=== PATIENT | female | born 1955 | race Caucasian/White ===

== ENCOUNTER 2016-12-03 11:04 | Day surgery (SDC) | payer BC ==
[2016-11-30 13:25] VITALS: BMI 27.3
[~2016-12-03 11:04] MED LIST: LACTATED RINGERS 1,000 ML IV SCH
[2016-12-03 11:23] VITALS: RESP 16; TEMP 98.3
[2016-12-03] MEDS ORDERED: LIDOCAINE 1% 20 ML VIAL (10MG/ML) FOR IV START INTRADERMA ONE (11:42)
[2016-12-03 11:45] LABS: Glucose,Whole Blood 89 mg/dL (75-99)
[2016-12-03] MEDS ORDERED: PROPOFOL 10 MG/ML 20 ML VIAL IV ONE (12:03)
--- NOTE | 2016-12-03 12:19 | P.PCN ---
Date of Procedure: 12/03/16 Procedure(s) Performed: BRIEF HISTORY: Patient is a 61-year-old pleasant white female, scheduled for an elective colonoscopy as a part of evaluation of long-standing history of ulcerative colitis was diagnosed in 1999. Her last colonoscopy was done 2 years ago. She remains in clinical remission. PROCEDURE PERFORMED: Colonoscopy with biopsy. PREOPERATIVE DIAGNOSIS: Long-standing history of ulcerative colitis. IV sedation per Anesthesia. PROCEDURE: After informed consent was obtained, the patient, was brought into the endoscopy unit. IV conscious sedation was administered by Anesthesia under continuous monitoring. Initially the Olympus CF-160 flexible video colonoscope was then inserted in the rectum, gradually advanced into the cecum without any difficulty. Careful examination was performed as the scope was gradually being withdrawn. Ileocecal valve and the appendiceal orifice were visualized and appeared normal. Prep was excellent. Mucosa of the cecum, ascending colon, transverse colon, descending colon, sigmoid colon, and rectum appeared normal. Random biopsies were done at every 10 cm intervals to rule out dysplasia. Scattered sigmoidal diverticulosis seen. Retroflexion was performed in the rectum and no lesions were seen. The patient tolerated the procedure well. IMPRESSION: Normal-appearing colon from rectum to cecum with no evidence of active colitis or colorectal neoplasia. Scattered sigmoid diverticulosis. RECOMMENDATIONS: Findings of this examination were discussed with the patient as well as a family. She was advised to follow with the biopsy results. If the biopsy does not show any evidence of dysplasia he can have a repeat colonoscopy in 2 years.
[2016-12-03 13:00] VITALS: BP 113/72; PULSE 68
== END 2016-12-03 13:04 | disposition home or self-care (01) ==
LOC: ORWHC2ENDO 11:04
PROVIDERS: ATTEND Internal Medicine Gastroenterology
DX: K52.89 Other specified noninfective gastroenteritis and colitis (principal); K57.30 Diverticulosis of large intestine without perforation or abscess without bleeding; K58.9 Irritable bowel syndrome, unspecified; K21.9 Gastro-esophageal reflux disease without esophagitis; Z79.52 Long term (current) use of systemic steroids; Z79.899 Other long term (current) drug therapy; Z88.5 Allergy status to narcotic agent; Z91.041 Radiographic dye allergy status
CPT/HCPCS: 88305; 45380; J2704

== ENCOUNTER → 2016-12-13 | Outpatient (CLI) | payer BC ==
--- NOTE | 2016-12-15 07:05 | MM ---
Reason for exam: screening (asymptomatic). Last mammogram was performed 1 year and 3 months ago. History: Patient is postmenopausal and is nulliparous. Family history of breast cancer in paternal aunt at age 65 and breast cancer in maternal aunt at age 67. Benign left mammotome panel of the left breast, June 09, 2011. Took hormonal contraceptives for 4 years beginning at age 16. Physical Findings: A clinical breast exam by your physician is recommended on an annual basis and results should be correlated with mammographic findings. MG Screening Mammo w CAD Bilateral CC and MLO view(s) were taken. Prior study comparison: September 10, 2015, bilateral MG screening mammo w CAD. July 23, 2014, bilateral MG screening mammo w CAD. February 09, 2013, bilateral digital screening mammo w/CAD. The breast tissue is heterogeneously dense. This may lower the sensitivity of mammography. Calcifications in the right breast are unchanged from 2015. Asymmetric density superior right breast appears more defined but may represent summation shadow. Asymmetric density left breast at a middle depth lateral to the retroareolar plane also appears more defined. ASSESSMENT: Incomplete: need additional imaging evaluation, BI-RAD 0 RECOMMENDATION: Special view mammogram of both breasts. If lesion persists on supplemental views, image directed ultrasound is recommended. [facility] will attempt to contact patient to return for supplemental views and ultrasound if indicated. LAUREN
== END | disposition home or self-care (01) ==
LOC: RADMAMWWP 14:34
PROVIDERS: ATTEND Obstetrics & Gynecology
DX: Z12.31 Encounter for screening mammogram for malignant neoplasm of breast (principal); Z80.3 Family history of malignant neoplasm of breast

== ENCOUNTER → 2016-12-16 | Outpatient (CLI) | payer BC ==
--- NOTE | 2016-12-16 14:44 | MM ---
Reason for exam: additional evaluation requested from abnormal screening. Last mammogram was performed less than 1 month ago. History: Patient is postmenopausal and is nulliparous. Family history of breast cancer in paternal aunt at age 65 and breast cancer in maternal aunt at age 67. Benign left mammotome panel of the left breast, June 09, 2011. Took hormonal contraceptives for 4 years beginning at age 16. Physical Findings: Nurse did not find any significant physical abnormalities on exam. MG 3D Work Up W/Cad ELLIS Bilateral CC and MLO view(s) were taken. Prior study comparison: December 13, 2016, bilateral MG screening mammo w CAD. September 10, 2015, bilateral MG screening mammo w CAD. The breast tissue is heterogeneously dense. This may lower the sensitivity of mammography. Previous mammotome biopsy in the left breast. Nodularity persists in the left breast. This finding is changed when compared with previous exams. These results were verbally communicated with the patient and result sheet given to the patient on 12/16/16. ASSESSMENT: Incomplete: need additional imaging evaluation, BI-RAD 0 RECOMMENDATION: Ultrasound of the left breast.
--- NOTE | 2016-12-16 14:45 | USB ---
Reason for exam: additional evaluation requested from abnormal screening. History: Patient is postmenopausal and is nulliparous. Family history of breast cancer in paternal aunt at age 65 and breast cancer in maternal aunt at age 67. Benign left mammotome panel of the left breast, June 09, 2011. Took hormonal contraceptives for 4 years beginning at age 16. US Breast Workup LT Left breast ultrasound including all four quadrants, the retroareolar region and axilla demonstrates no cystic or solid lesion seen. These results were verbally communicated with the patient and result sheet given to the patient on 12/16/16. ASSESSMENT: Probably benign, BI-RAD 3 RECOMMENDATION: Follow-up diagnostic mammogram of the left breast in 6 months.
== END ==
LOC: RADMAMWWP 12:53
PROVIDERS: ATTEND Obstetrics & Gynecology
DX: R92.8 Other abnormal and inconclusive findings on diagnostic imaging of breast (principal)
CPT/HCPCS: 76641; G0204; G0279

== ENCOUNTER → 2017-06-16 | Outpatient (CLI) | payer BC ==
--- NOTE | 2017-06-16 10:54 | MM ---
Reason for exam: follow-up at short interval from prior study. Last mammogram was performed 6 months ago. History: Patient is postmenopausal and is nulliparous. Family history of breast cancer in paternal aunt at age 65 and breast cancer in maternal aunt at age 67. Benign left mammotome panel of the left breast, June 09, 2011. Took hormonal contraceptives for 4 years beginning at age 16. Physical Findings: Nurse did not find any significant physical abnormalities on exam. MG 3D Diag Mammo W/Cad LT CC and MLO view(s) were taken of the left breast. Prior study comparison: December 16, 2016, bilateral MG 3d work up w/cad ELLIS. December 13, 2016, bilateral MG screening mammo w CAD. The breast tissue is heterogeneously dense. This may lower the sensitivity of mammography. There is chronic nodularity in the left breast. No significant new findings when compared with previous films. These results were verbally communicated with the patient and result sheet given to the patient on 06/16/17. ASSESSMENT: Benign, BI-RAD 2 RECOMMENDATION: Return to routine screening mammogram schedule for both breasts. Back on schedule.
== END | disposition home or self-care (01) ==
LOC: RADMAMWWP 10:11
PROVIDERS: ATTEND Obstetrics & Gynecology
DX: R92.8 Other abnormal and inconclusive findings on diagnostic imaging of breast (principal)
CPT/HCPCS: G0206; G0279

== ENCOUNTER → 2017-08-15 | Outpatient (CLI) | payer BC ==
--- NOTE | 2017-08-15 13:53 | US ---
EXAMINATION TYPE: US carotid duplex BILAT DATE OF EXAM: 08/15/2017 COMPARISON: NONE CLINICAL HISTORY: H93.19 pulsatile Tinnitus. Patient states having left temporal discomfort, no HTN o r high cholesterol EXAM MEASUREMENTS: RIGHT: Peak Systolic Velocity (PSV) cm/sec ----- Right CCA: 98.2 ----- Right ICA: 113.4 ----- Right ECA: 100.4 ICA/CCA ratio: 1.2 RIGHT: End Diastole cm/sec ----- Right CCA: 22.7 ----- Right ICA: 26.7 ----- Right ECA: 6.0 LEFT: Peak Systolic Velocity (PSV) cm/sec ----- Left CCA: 115.7 ----- Left ICA: 90.5 ----- Left ECA: 89.2 ICA/CCA ratio: 0.8 LEFT: End Diastole cm/sec ----- Left CCA: 25.2 ----- Left ICA: 23.2 ----- Left ECA: 0.0 VERTEBRALS (direction of flow): Right Vertebral: Antegrade Left Vertebral: Antegrade Rhythm: Normal No wall thickening, plaque or significant stenosis seen. IMPRESSION: No evidence of hemodynamically significant stenosis within either carotid arterial syste m.
== END ==
LOC: RADUSWWP 12:12
PROVIDERS: ATTEND Family Medicine
DX: H93.A2 Pulsatile tinnitus, left ear (principal)
CPT/HCPCS: 93880

== ENCOUNTER → 2017-12-29 | Outpatient (CLI) | payer BC ==
--- NOTE | 2017-12-30 11:00 | MM ---
Reason for exam: screening (asymptomatic). Last mammogram was performed 6 months ago. History: Patient is postmenopausal and is nulliparous. Family history of breast cancer in paternal aunt at age 65 and breast cancer in maternal aunt at age 67. Benign left mammotome panel of the left breast, June 09, 2011. Took hormonal contraceptives for 4 years beginning at age 16. Physical Findings: A clinical breast exam by your physician is recommended on an annual basis and results should be correlated with mammographic findings. MG 3D Screening Mammo W/Cad Bilateral CC and MLO view(s) were taken. Prior study comparison: June 16, 2017, left breast MG 3d diag mammo w/cad LT. December 16, 2016, bilateral MG 3d work up w/cad ELLIS. The breast tissue is heterogeneously dense. This may lower the sensitivity of mammography. Finding: There are typically benign calcifications in both breasts. No suspicious abnormality. No significant changes in finding since June 16, 2017 and December 16, 2016. ASSESSMENT: Benign, BI-RAD 2 RECOMMENDATION: Routine screening mammogram of both breasts in 1 year.
== END | disposition home or self-care (01) ==
LOC: RADMAMWWP 15:32
PROVIDERS: ATTEND Obstetrics & Gynecology
DX: Z12.31 Encounter for screening mammogram for malignant neoplasm of breast (principal)
CPT/HCPCS: 77063; 77067

== ENCOUNTER → 2018-02-14 | Outpatient (CLI) | payer BC ==
--- NOTE | 2018-02-14 09:26 | US ---
EXAMINATION TYPE: US abdomen limited DATE OF EXAM: 02/14/2018 COMPARISON: NONE CLINICAL HISTORY: R10.9 Abdominal Pain. Anemia, abdominal pain, splenomegaly EXAM MEASUREMENTS: Liver Length: 12.4 cm Gallbladder Wall: 0.3 cm CBD: 0.2 cm Right Kidney: 10.4 x 4.1 x 4.2 cm Pancreas: visualized portions appear wnl Liver: appears wnl as visualized Gallbladder: no evidence of stones Evidence for sonographic Peterson's sign: no CBD: wnl Right Kidney: thin renal cortex Spleen measuring upper limits of normal = 13.5cm IMPRESSION: No significant abnormality seen.
== END | disposition home or self-care (01) ==
LOC: RADUSWWP 08:21
PROVIDERS: ATTEND Internal Medicine Hematology & Oncology
DX: D64.89 Other specified anemias (principal); R10.9 Unspecified abdominal pain
CPT/HCPCS: 76705

== ENCOUNTER → 2018-03-14 | Outpatient (CLI) | payer BC, MEDICARE ==
--- NOTE | 2018-03-14 13:19 | CT ---
EXAMINATION TYPE: CT abdomen pelvis wo con DATE OF EXAM: 03/14/2018 COMPARISON: Renal ultrasound 01/30/2016 which commented on a 2.2 cm septated left renal cyst. HISTORY: 63-year-old female Lt renal cyst CT DLP: 440.8 mGycm. Automated exposure control for dose reduction was used. TECHNIQUE: Contiguous axial scanning of the abdomen and pelvis without IV contrast. Coronal and sagit yayo reconstructions performed. FINDINGS: Heart normal size without pericardial effusion. Lung bases clear without pleural effusion. Noncontrast appearance of the liver, gallbladder, adrenal glands, right kidney, spleen with hilar spl enule, and pancreas shows no gross abnormality. There is a partially exophytic cyst from the posterior left kidney that measures 2.9 cm versus 2.2 cm on 01/30/2016. No dilated small bowel, free fluid, or free air. No mesenteric or retroperitoneal lymphadenopathy. Mild to moderate stool cecum and ascending colon. No pericolonic inflammatory change. Bladder is urine distended. Uterus and small ovaries are visualized. No abnormal fluid collection in the pelvis or pelvic lymphadenopathy. Bones: Mild degenerative changes at the hips. Additional degenerative changes lower lumbar spine. No osseous destructive process. Hemangioma within the T11 vertebral body. IMPRESSION: Cystic lesion posterior left kidney measures 2.9 cm versus 2.2 cm on 01/30/2016. Relatively indolent be havior suggests a benign etiology. 6 - 12 month follow-up ultrasound can be performed given the compl exity seen on the ultrasound exam. Internal components are not assessed on this noncontrast study.
== END | disposition home or self-care (01) ==
LOC: RADCTMAIN 10:58
PROVIDERS: ATTEND Internal Medicine Hematology & Oncology
DX: N28.1 Cyst of kidney, acquired (principal); R10.9 Unspecified abdominal pain; N83.209 Unspecified ovarian cyst, unspecified side
CPT/HCPCS: 74176

== ENCOUNTER → 2018-04-21 | Outpatient (CLI) | payer MEDICARE, BC ==
[2018-04-21 11:46] LABS: Potassium 3.8 mmol/L (3.5-5.1)
[2018-04-21 11:47] LABS: Albumin 3.8 g/dL (3.5-5.0); Total Protein 6.5 g/dL (6.3-8.2)
[2018-04-21 12:02] LABS: T4, Free (Free Thyroxine) 0.96 ng/dL (0.78-2.19)
[2018-04-21 18:21] LABS: Thyroid Peroxidase Antibodies 37.4 U/mL (0.0-60.0)
== END | disposition home or self-care (01) ==
LOC: LABWHC1 11:13
PROVIDERS: ATTEND Family Medicine
DX: D64.9 Anemia, unspecified (principal); R73.01 Impaired fasting glucose
CPT/HCPCS: 36415; 80053; 83036; 84439; 84443; 86376; 86800

== ENCOUNTER 2018-12-06 07:04 | Day surgery (SDC) | payer MEDICARE ==
[2018-12-04 13:20] VITALS: BMI 29.9
[~2018-12-06 07:04] MED LIST changes: -LACTATED RINGERS 1,000 ML IV SCH; +LIDOCAINE 1% 20 ML VIAL (10MG/ML) FOR IV START INTRADERMA PRN
[2018-12-06 07:26] VITALS: RESP 18; TEMP 98.1
[2018-12-06] MEDS ORDERED: LACTATED RINGERS 1,000 ML IV ONE (07:27)
[2018-12-06] MEDS: LACTATED RINGERS 1,000 ML IV SCH ×2 (07:30→08:20)
[2018-12-06 07:34] LABS: Glucose,Whole Blood 92 mg/dL (75-99)
[2018-12-06] MEDS ORDERED: PROPOFOL 10 MG/ML 20 ML VIAL IV ONE (07:55)
--- NOTE | 2018-12-06 08:13 | P.PCN ---
Date of Procedure: 12/06/18 Procedure(s) Performed: BRIEF HISTORY: Patient is a 63-year-old pleasant white female, scheduled for an elective colonoscopy as a part of surveillance of long-standing history of ulcerative colitis. She remains in clinical remission. Presently maintained on oral mesalamine and remains in clinical remission. PROCEDURE PERFORMED: Colonoscopy with random biopsies and snare polypectomy. PREOPERATIVE DIAGNOSIS: Long standing history of ulcerative colitis. IV sedation per Anesthesia. PROCEDURE: After informed consent was obtained, the patient, was brought into the endoscopy unit. IV sedation was administered by Anesthesia under continuous monitoring. Digital rectal examination was normal. Initially the Olympus CF- 160 flexible video colonoscope was then inserted in the rectum, gradually advanced into the cecum without any difficulty. Careful examination was performed as the scope was gradually being withdrawn. Ileocecal valve and the appendiceal orifice were visualized and appeared normal. Prep was excellent. Mucosa of the cecum, ascending colon, transverse colon, descending colon appeared normal. In the sigmoid colon there were 2 small flat polyps measuring 5 mm in size both of which were removed by snare polypectomy. Rest of the, sigmoid colon, and rectum appeared normal. Random biopsies were done from the cecum to rectum at every 10 cm intervals to rule out dysplasia. Retroflexion was performed in the rectum and no lesions were seen. The patient tolerated the procedure well. IMPRESSION: 5 mm 2 flat; polyp status post snare polypectomy Rest of the colon appeared normal with no evidence of active colitis. RECOMMENDATIONS: Findings of this examination were discussed with the patient well as her family. She was advised to follow with the biopsy results. If the biopsy show no evidence of dysplasia, she can have a repeat colonoscopy in one to 2 years.
[2018-12-06] MEDS ORDERED: IV FLUID CONTINUATION 600 ML IV ONE (08:20)
[2018-12-06 08:55] VITALS: BP 124/76; PULSE 73
== END 2018-12-06 08:53 | disposition home or self-care (01) ==
LOC: ORWHC2ENDO 07:04
PROVIDERS: ATTEND Internal Medicine Gastroenterology
DX: K51.90 Ulcerative colitis, unspecified, without complications (principal); K63.5 Polyp of colon; K21.9 Gastro-esophageal reflux disease without esophagitis; D59.1 Other autoimmune hemolytic anemias; Z79.52 Long term (current) use of systemic steroids; Z79.899 Other long term (current) drug therapy; Z88.5 Allergy status to narcotic agent; Z91.041 Radiographic dye allergy status
CPT/HCPCS: 88305; 45380; 45385; J2704

== ENCOUNTER → 2019-01-02 | Outpatient (CLI) | payer MEDICARE ==
--- NOTE | 2019-01-03 13:28 | MM ---
Reason for exam: screening (asymptomatic). Last mammogram was performed 1 year ago. History: Patient is postmenopausal and is nulliparous. Family history of breast cancer in paternal aunt at age 65 and breast cancer in maternal aunt at age 67. Benign left mammotome panel of the left breast, June 09, 2011. Took hormonal contraceptives for 4 years beginning at age 16. Physical Findings: A clinical breast exam by your physician is recommended on an annual basis and results should be correlated with mammographic findings. MG 3D Screening Mammo W/Cad Bilateral CC and MLO view(s) were taken. Prior study comparison: December 29, 2017, bilateral MG 3d screening mammo w/cad. June 16, 2017, left breast MG 3d diag mammo w/cad LT. The breast tissue is extremely dense which could obscure a lesion on mammography. There are typically benign similar bilateral calcifications when compared to priors. No suspicious abnormality. No significant changes when compared with prior studies. ASSESSMENT: Benign, BI-RAD 2 RECOMMENDATION: Routine screening mammogram of both breasts in 1 year.
== END | disposition home or self-care (01) ==
LOC: RADMAMWWP 13:01
PROVIDERS: ATTEND Obstetrics & Gynecology
DX: Z12.31 Encounter for screening mammogram for malignant neoplasm of breast (principal); Z80.3 Family history of malignant neoplasm of breast
CPT/HCPCS: 77063; 77067

== ENCOUNTER → 2019-04-10 | Outpatient (CLI) | payer MEDICARE ==
--- NOTE | 2019-04-10 10:25 | CT ---
EXAMINATION TYPE: CT abdomen pelvis wo con DATE OF EXAM: 04/10/2019 COMPARISON: Prior CT abdomen pelvis 03/14/2018 HISTORY: Renal and Ovarian cyst CT DLP: 508.8 mGycm Automated exposure control for dose reduction was used. TECHNIQUE: Helical acquisition of images from the lung bases through the pelvis. FINDINGS: Lack of contrast could compromise sensitivity. Small umbilical hernia contains fat. LUNG BASES: No significant abnormality is appreciated. AORTA: No significant abnormality is appreciated. LIVER/GB: No significant abnormality is appreciated. PANCREAS: No significant abnormality is seen. SPLEEN: No significant abnormality is seen. ADRENALS: No significant abnormality is seen. KIDNEYS: Exophytic left renal cyst measures approximately 3 cm similar to prior exam REPRODUCTIVE ORGANS: No significant abnormality is seen. URINARY BLADDER: No significant abnormality is seen. BOWEL: Minimal diverticular change seen in sigmoid colon.. FREE AIR: No Free Air is visible. ASCITES: None visible. PELVIC ADENOPATHY: None visualized. RETROPERITONEAL ADENOPATHY: No Retroperitoneal Adenopathy visible. OSSEOUS STRUCTURES: No significant abnormality is seen. IMPRESSION: ESSENTIALLY STABLE EXAM.
== END | disposition home or self-care (01) ==
LOC: RADCTMAIN 07:41
PROVIDERS: ATTEND Internal Medicine Hematology & Oncology
DX: N28.1 Cyst of kidney, acquired (principal); Z88.5 Allergy status to narcotic agent; Z88.8 Allergy status to other drugs, medicaments and biological substances
CPT/HCPCS: 74176

== ENCOUNTER → 2019-07-13 | Outpatient (CLI) | payer MEDICARE ==
[2019-07-13 14:53] LABS: Appearance,Urine Clear (Clear); Bilirubin,Urine Negative (Negative); Blood,Urine Negative (Negative); Color,Urine Colorless; Glucose,Urine (UA) Negative (Negative); Ketones,Urine Negative (Negative); Leukocyte Esterase,Urine Negative (Negative); Nitrite,Urine Negative (Negative); Protein,Urine Negative (Negative); Specific Gravity,Urine 1.003 (1.001-1.035); Urobilinogen,Urine <2.0 mg/dL (<2.0)
== END | disposition home or self-care (01) ==
LOC: LABWHC1 12:52
PROVIDERS: ATTEND Family Medicine
DX: N39.0 Urinary tract infection, site not specified (principal)
CPT/HCPCS: 81003; 87086

== ENCOUNTER → 2019-08-21 | Outpatient (CLI) | payer MEDICARE ==
[2019-08-21 16:33] LABS: HCT 38.7 % (34.0-46.0); HGB 12.6 gm/dL (11.4-16.0); MCH 32.3 pg (25.0-35.0); MCHC 32.5 g/dL (31.0-37.0); MCV 99.3 fL (80.0-100.0); Mean Platelet Volume 5.8; Platelet Count 245 k/uL (150-450); RDW 13.3 % (11.5-15.5); WBC 8.1 k/uL (3.8-10.6)
[2019-08-22 01:56] LABS: African American GFR (CKD) 77.2 (60.0-200.0); Anion Gap 11.3 mmol/L (4.00-12.00); BUN/Creat Ratio 21.11 Ratio (12.00-20.00); Carbon Dioxide 25.7 mmol/L (21.6-31.8); Potassium 4.4 mmol/L (3.5-5.5)
== END | disposition home or self-care (01) ==
LOC: LABWHC1 15:40
PROVIDERS: ATTEND Internal Medicine Cardiovascular Disease
DX: I48.0 Paroxysmal atrial fibrillation (principal)
CPT/HCPCS: 36415; 80048; 84443; 85027

== ENCOUNTER → 2020-01-03 | Outpatient (CLI) | payer MEDICARE ==
--- NOTE | 2020-01-03 14:39 | MM ---
Reason for exam: clinical finding. Last mammogram was performed 1 year ago. History: Patient is postmenopausal and is nulliparous. Family history of breast cancer in paternal aunt at age 65 and breast cancer in maternal aunt at age 67. Benign left mammotome panel of the left breast, June 09, 2011. Took hormonal contraceptives for 4 years beginning at age 16. Taking estrogen for 10 years. Physical Findings: Nurse did not find any significant physical abnormalities on exam. MG 3D Diag Mammo W/Cad ELLIS Bilateral CC and MLO view(s) were taken. Prior study comparison: January 02, 2019, bilateral MG 3d screening mammo w/cad. December 29, 2017, bilateral MG 3d screening mammo w/cad. The breast tissue is heterogeneously dense. This may lower the sensitivity of mammography. Benign appearing bilateral calcifications. No suspicious abnormality. No significant new findings when compared with previous films. These results were verbally communicated with the patient and result sheet given to the patient on 01/03/20. ASSESSMENT: Benign, BI-RAD 2 RECOMMENDATION: Return to routine screening mammogram schedule for both breasts.
== END | disposition home or self-care (01) ==
LOC: RADMAMWWP 12:50
PROVIDERS: ATTEND Obstetrics & Gynecology
DX: N64.4 Mastodynia (principal)
CPT/HCPCS: 77066; G0279; 77062

== ENCOUNTER → 2020-08-26 | Outpatient (CLI) | payer MEDICARE ==
--- NOTE | 2020-08-26 09:46 | US ---
EXAMINATION TYPE: US liver DATE OF EXAM: 08/26/2020 COMPARISON: 02/14/2018 CLINICAL HISTORY: 65-year-old female R94.5 ABN LIVER FUNCTIONS. TECHNIQUE: Multiple sonographic images of the right upper quadrant are obtained. FINDINGS: EXAM MEASUREMENTS: Liver Length: 11.1 cm Gallbladder Wall: 0.2 cm CBD: 0.2 cm Right Kidney: 9.8 x 4.2 x 4.4 cm Lead Security Officer notes: Patient of thick body habitus. Pancreas: Tail obscured by overlying bowel gas. Visualized portions show no gross abnormality. Liver: wnl Gallbladder: Borderline distended up to 9.3 x 3.6 cm probably due to nonfasting state. Either a 7 mm sessile polyp or adherent sludge along the posterior wall of the gallbladder body. No shadowing calc ulus. CBD: wnl Right Kidney: No hydronephrosis. IMPRESSION: 1. Borderline distended gallbladder probably due to fasting state. 2. A 7 mm sessile polyp versus adherent sludge along the posterior gallbladder wall. Not seen on 02/14. Six-month follow-up ultrasound recommended to reassess.
== END | disposition home or self-care (01) ==
LOC: RADUSWWP 07:01
PROVIDERS: ATTEND Internal Medicine Hematology & Oncology
DX: K82.8 Other specified diseases of gallbladder (principal); R94.5 Abnormal results of liver function studies; Z88.5 Allergy status to narcotic agent; Z88.4 Allergy status to anesthetic agent; Z88.8 Allergy status to other drugs, medicaments and biological substances
CPT/HCPCS: 76705

== ENCOUNTER → 2020-10-03 | Outpatient (CLI) | payer MEDICARE ==
[2020-10-03 08:48] LABS: Basophils # (A) 0.1 k/uL (0-0.2); Basophils % (A) 1 %; Eosinophils # (A) 0.2 k/uL (0-0.7); Eosinophils % (A) 2 %; HCT 34.1 % (34.0-46.0); HGB 10.8 gm/dL (11.4-16.0); Hypochromasia Slight; Lymphocytes # (A) 1.8 k/uL (1.0-4.8); Lymphocytes % (A) 25 %; MCH 33.1 pg (25.0-35.0); MCHC 31.7 g/dL (31.0-37.0); Macrocytosis Moderate; Mean Platelet Volume 6.8; Monocytes # (A) 0.4 k/uL (0-1.0); Monocytes % (A) 6 %; Neutrophils # (A) 4.7 k/uL (1.3-7.7); Neutrophils % (A) 64 %; Platelet Count 272 k/uL (150-450); Poikilocytosis Slight; RBC 3.26 m/uL (3.80-5.40); RDW 15.6 % (11.5-15.5); WBC 7.3 k/uL (3.8-10.6)
[2020-10-03 09:01] LABS: MCV 104.5 fL (80.0-100.0)
[2020-10-03 16:34] LABS: African American GFR (CKD) 76.7 (60.0-200.0); Albumin 4.2 g/dL (3.80-4.90); Albumin/Globulin Ratio 1.83 (1.60-3.17); Anion Gap 7.5 mmol/L (4.00-12.00); Calcium 9.4 mg/dL (8.7-10.3); Carbon Dioxide 23.5 mmol/L (21.6-31.8); Globulin 2.3 g/dL (1.6-3.3); Non-African American GFR(CKD) 66.2 (60.0-200.0); Potassium 4.1 mmol/L (3.5-5.5); Total Protein 6.5 g/dL (6.2-8.2)
== END | disposition home or self-care (01) ==
LOC: LABWHC1 08:13
PROVIDERS: ATTEND Internal Medicine Gastroenterology
DX: K83.01 Primary sclerosing cholangitis (principal)
CPT/HCPCS: 36415; 80053; 85025; 86301

== ENCOUNTER → 2020-10-10 | Outpatient (CLI) | payer MEDICARE ==
--- NOTE | 2020-10-11 00:48 | MR ---
EXAMINATION TYPE: MR MRCP DATE OF EXAM: 10/10/2020 COMPARISON: None HISTORY: Primary sclerosing cholangitis Multiplanar multiecho imaging of the abdomen was performed without contrast. There are MRCP images. Gallbladder is large and measures 4.5 cm in diameter. I see no gallbladder wall thickening. The pancr eatic duct has normal size and contour. There is poor visualization of the intrahepatic bile ducts. T here is variable diameter of the common bile duct. Distal common bile duct measures 6 mm. The proxima l common bile duct measures 2 to 3 mm. There is some narrowing of the distal left and right hepatic d ucts. These are not well visualized. There is no discrete liver mass. There is no evidence of pancreatic mass. There is 3 cm cortical cyst posterior left kidney. There is no retroperitoneal adenopathy. Spleen is intact. There is no hydronephrosis. There is no evidence of ascites. There is no sign of pleural effusion. IMPRESSION: Variable diameter of the biliary tree consistent with sclerosing cholangitis. There is stricture of t he proximal common bile duct and also the distal left and right hepatic duct. There is normal diamete r of the distal common hepatic duct and the distal common bile duct. No discrete liver mass. Normal pancreatic duct.
== END | disposition home or self-care (01) ==
LOC: RADMRIMAIN 08:57
PROVIDERS: ATTEND Internal Medicine Gastroenterology
DX: K83.01 Primary sclerosing cholangitis (principal); K83.8 Other specified diseases of biliary tract
CPT/HCPCS: 74181

== ENCOUNTER → 2021-04-03 | Outpatient (CLI) | payer MEDICARE ==
[2021-04-03 17:40] LABS: Chol/HDL Ratio 2.7
[2021-04-03 17:59] LABS: T4, Free (Free Thyroxine) 0.8 ng/dL (0.80-1.80)
== END | disposition home or self-care (01) ==
LOC: LABWHC1 08:21
PROVIDERS: ATTEND Internal Medicine Endocrinology, Diabetes & Metabolism
DX: E04.2 Nontoxic multinodular goiter (principal); Z79.52 Long term (current) use of systemic steroids; Z83.3 Family history of diabetes mellitus
CPT/HCPCS: 36415; 80061; 83036; 84439; 84443

== ENCOUNTER 2021-04-17 08:57 | Day surgery (SDC) | payer MEDICARE ==
[2021-04-14 11:58] VITALS: BMI 30.1
[~2021-04-17 08:57] MED LIST changes: +LACTATED RINGERS 1,000 ML IV SCH; +LIDOCAINE 1% (10MG/ML) FOR IV START INTRADERMA PRN; -LIDOCAINE 1% 20 ML VIAL (10MG/ML) FOR IV START INTRADERMA PRN
[2021-04-17 09:51] VITALS: RESP 16; TEMP 98.8
[2021-04-17 10:09] LABS: Glucose,Whole Blood 97 mg/dL (75-99)
[2021-04-17] MEDS ORDERED: PROPOFOL 10 MG/ML 20 ML VIAL IV ONE (10:19)
[2021-04-17] MEDS ORDERED: LIDOCAINE 1% INJ 10MG/ML (20 ML MDV) ONE (10:19)
--- NOTE | 2021-04-17 10:43 | P.PCN ---
Date of Procedure: 04/17/21 Procedure(s) Performed: BRIEF HISTORY: Patient is a 66-year-old pleasant white female scheduled for an elective colonoscopy as a part of long-standing history of ulcerative colitis. PROCEDURE PERFORMED: Colonoscopy with random biopsies. PREOPERATIVE DIAGNOSIS: Long-standing history of ulcerative colitis. IV sedation per Anesthesia. PROCEDURE: After informed consent was obtained, the patient, was brought into the endoscopy unit. IV sedation was administered by Anesthesia under continuous monitoring. Digital rectal examination was normal. Initially the Olympus CF-160 flexible video colonoscope was then inserted in the rectum, gradually advanced into the cecum without any difficulty. Careful examination was performed as the scope was gradually being withdrawn. Ileocecal valve and the appendiceal orifice were visualized and appeared normal. Prep was excellent. Mucosa of the cecum, ascending colon, transverse colon, descending colon, sigmoid colon, and rectum appeared normal. Random biopsies were done from the cecum to rectum at every 10 cm into well. Retroflexion was performed in the rectum and no lesions were seen. The patient tolerated the procedure well. IMPRESSION: Normal-appearing colon from rectum to cecum with no evidence of active colitis or colorectal neoplasia.. RECOMMENDATIONS: Findings of this examination were discussed with the patient as well as a family. He'll follow with the biopsy results. She was advised to have a repeat surveillance colonoscopy every 2 years..
[2021-04-17 11:20] VITALS: BP 131/59; PULSE 60
== END 2021-04-17 11:35 | disposition home or self-care (01) ==
LOC: ORWHC2ENDO 08:57
PROVIDERS: ATTEND Internal Medicine Gastroenterology
DX: K51.90 Ulcerative colitis, unspecified, without complications (principal); E07.9 Disorder of thyroid, unspecified; G43.909 Migraine, unspecified, not intractable, without status migrainosus; Z79.52 Long term (current) use of systemic steroids; Z79.899 Other long term (current) drug therapy; Z98.890 Other specified postprocedural states; Z88.5 Allergy status to narcotic agent; Z91.041 Radiographic dye allergy status
CPT/HCPCS: 88305; 45380; J2001; J2704

== ENCOUNTER → 2021-05-19 | Outpatient (CLI) | payer MEDICARE ==
[2021-05-19 18:45] LABS: HCT 34.9 % (37.2-46.3); HGB 11.2 g/dL (12.0-15.0); MCH 35.1 pg (27.0-32.0); MCHC 32.1 g/dL (32.0-37.0); MCV 109.4 fL (80.0-97.0); Mean Platelet Volume 9.5 fL (9.5-12.2); Platelet Count 255 X 10*3/uL (140-440); RBC 3.19 X 10*6/uL (4.10-5.20); RDW 14.5 % (11.5-14.5); WBC 10.27 X 10*3/uL (4.50-10.00)
[2021-05-20 05:57] LABS: African American GFR (CKD) 76.1 (60.0-200.0); Anion Gap 9.9 mmol/L (4.00-12.00); Carbon Dioxide 22.1 mmol/L (21.6-31.8); Non-African American GFR(CKD) 65.7 (60.0-200.0); Potassium 4.7 mmol/L (3.5-5.5)
== END | disposition home or self-care (01) ==
LOC: LABWHC1 14:39
PROVIDERS: ATTEND Internal Medicine Cardiovascular Disease
DX: I48.0 Paroxysmal atrial fibrillation (principal)
CPT/HCPCS: 36415; 80048; 84443; 85027

== ENCOUNTER → 2021-07-24 | Outpatient (CLI) | payer MEDICARE ==
[2021-07-24 15:07] LABS: HGB 11.5 gm/dL (11.4-16.0); MCH 35.5 pg (25.0-35.0); MCHC 33.9 g/dL (31.0-37.0); MCV 104.6 fL (80.0-100.0); Macrocytosis Moderate; Mean Platelet Volume 7.1; Platelet Count 267 k/uL (150-450); Poikilocytosis Slight; RBC 3.25 m/uL (3.80-5.40); RDW 14.7 % (11.5-15.5); WBC 8.8 k/uL (3.8-10.6)
[2021-07-24 15:16] LABS: Potassium 4.3 mmol/L (3.5-5.1)
== END | disposition home or self-care (01) ==
LOC: LABPAT 13:40
PROVIDERS: ATTEND Internal Medicine Clinical Cardiac Electrophysiology
DX: Z01.812 Encounter for preprocedural laboratory examination (principal); I48.0 Paroxysmal atrial fibrillation
CPT/HCPCS: 80051; 82565; 84520; 85027

== ENCOUNTER 2021-07-27 13:32 | Day surgery (SDC) | payer MEDICARE ==
[2021-07-24 12:41] VITALS: BMI 30.1
[~2021-07-27 13:32] MED LIST changes: +DEXAMETHASONE SOD PHOSPHATE 4 MG/ML 1 ML VIAL IV ONE; +ONDANSETRON 4 MG/2 ML VIAL IVP ONE; +ONDANSETRON 4 MG/2 ML VIAL IVP PRN; +fentaNYL (PF) 50 MCG/ML 2 ML AMP IV PRN
[2021-07-27] MEDS ORDERED: SODIUM CHLORIDE 0.9% 1,000 ML IV ONE (14:15)
[2021-07-27] MEDS ORDERED: LIDOCAINE 1% INJ 10MG/ML (20 ML MDV) ONE ×2 (14:41→14:49)
[2021-07-27] MEDS ORDERED: FAMOTIDINE 20 MG/2 ML VIAL ONE (14:44)
[2021-07-27] MEDS ORDERED: fentaNYL (PF) 50 MCG/ML 2 ML AMP ONE (14:49)
[2021-07-27] MEDS ORDERED: SUCCINYLCHOLINE CHLORIDE 100 MG/5 ML SYR IV ONE (14:49)
[2021-07-27] MEDS ORDERED: ONDANSETRON 4 MG/2 ML VIAL ONE (14:49)
[2021-07-27] MEDS ORDERED: FUROSEMIDE 10 MG/ML 2 ML VIAL ONE (14:49)
[2021-07-27] MEDS ORDERED: ISOPROTERENOL 250 MCG/1.25 ML SYR IV ONE (14:49)
[2021-07-27] MEDS ORDERED: MIDAZOLAM 2 MG/2 ML VIAL ONE (14:49)
[2021-07-27] MEDS ORDERED: PROTAMINE SULFATE 10 MG/ML 5 ML VIAL IV ONE (14:49)
[2021-07-27] MEDS ORDERED: GLYCOPYRROLATE 0.2 MG/ML 2 ML VIAL ONE (14:49)
[2021-07-27] MEDS ORDERED: ROCURONIUM 10 MG/ML (5 ML VIAL) IV ONE (14:49)
[2021-07-27] MEDS ORDERED: PROPOFOL 10 MG/ML 20 ML VIAL IV ONE (14:49)
[2021-07-27] MEDS ORDERED: ePHEDrine SULFATE/0.9% NACL/PF 50 MG/5 ML SYRINGE IV ONE (14:49)
[2021-07-27] MEDS ORDERED: DEXAMETHASONE SOD PHOSPHATE 10 MG/ML 1 ML VIAL ONE (14:49)
[2021-07-27] MEDS ORDERED: HEPARIN SODIUM,PORCINE 10,000 UNIT/ML 1 ML VIAL ONE (14:49)
[2021-07-27] MEDS ORDERED: NEOSTIGMINE 1 MG/ML 10 ML VIAL ONE (14:49)
[2021-07-27] MEDS ORDERED: HEPARIN SOD,PORK IN 0.45% NACL 25,000 UNIT in 0.45% NACL 1 250ML.BAG IV ONE (14:55)
--- NOTE | 2021-07-27 15:14 | P.HPCAR ---
History of Present Illness This is Dr. Diaz dictating an H/P on this patient The patient was interviewed and examined IMPRESSION / ASSESSMENT: Paroxysmal atrial fibrillation/atrial tachycardia with RVR Symptomatic Intolerant of AV node blocking drugs on account of low blood pressure Associated dizziness during these episodes History of hemolytic anemia ulcerative colitis sclerosing cholangitis Iodine ALLERGY Normal TSH PLAN: Pulmonary vein isolation Diagnostic EP study thereafter to look for atrial tachycardia Dye prep prior to the procedure was given HPI Patient has a history of recurrent palpitations associated with dizziness She is unable to tolerate drugs on account of low blood pressure control atrial fibrillation At this time she denies any chest discomfort no dizziness lightheadedness or palpitations the last week She did take the iodine prep with a high dose of prednisone ROS: No fever chills or rigors, no cough, phlegm or expectoration, no nausea, vomiting or diarrhea, no hematuria, dysuria, no musculoskeletal complaints, no strokes or seizures, no skin lesions. EXAMINATION: Temperature 99.7, pulse rate 62, blood pressure 133/63 Pulse ox 99% Breath sounds are equal bilaterally no rhonchi no crackles No JVD no hepatojugular reflux Heart sounds S1 and S2 are normal no murmurs or gallops no rub No lower extremity edema Abdomen soft nontender REVIEW OF LABS, ECG & MEDICAL DATA Coronavirus not detected PCR She takes prednisone 5 mg daily for the last 2 days she was the high dose prednisone since she is dialyzing Metoprolol succinate, ELIQUIS 5 mg twice daily Physical Exam Vitals: Vital Signs Temp Pulse Resp BP Pulse Ox 07/27/21 14:24 99.7 F H 62 16 133/63 99 Intake and Output 07/27/21 07/27/21 07/27/21 06:59 14:59 22:59 Intake Total 50 Balance 50 Intake: IV 50 Other: Weight 77.7 kg Past Medical History Past Medical History: Blood Disorder Additional Past Medical History / Comment(s): OPTICAL MIGRAINES, PAST HX OF IRREGULAR HEART BEAT., ULCERATIVE COLITIS, PRELIMINARY SCLEROSING CHOLANGITIS, HEMOLYTIC AUTOIMMUNE ANEMIA., STATES ANTIBODIES IN HER BLOOD AND TAKES LONGER TO FIND COMPATABLE BLOOD FOR TRANSFUSIONS. see Dr Diaz H&P, History of Any Multi-Drug Resistant Organisms: None Reported Past Surgical History: Orthopedic Surgery Additional Past Surgical History / Comment(s): TRIGGER FINGER RT RING FINGER , D & C. COLONOSCOPY, ERCP, breast biopsy left breast Past Anesthesia/Blood Transfusion Reactions: Previous Problems w/ Anesthesia, Family History of Problems w/ Anesthesia, Motion Sickness Additional Past Anesthesia/Blood Transfusion Reaction / Comment(s): STATES VERY SENSITIVE TO MEDICATIONS. "I do not need a lot". HX OF BLOOD TRANSFUSIONS - STATES ANTIBODIES IN BLOOD AND TAKES LONGER TO GET COMPATABLE BLOOD. low blood pressure with anesthesia. STATES HER SISTER HAS PONV AND DIZZINESS. Smoking Status: Never smoker - Past Family History Mother Family Medical History: Cancer Additional Family Medical History / Comment(s): Cervical Cancer. Sister(s) Family Medical History: Deep Vein Thrombosis (DVT), Pulmonary Embolus Additional Family Medical History / Comment(s): COUPLE OF SISTER HAD DVT's. Father Family Medical History: Cancer, CVA/TIA Additional Family Medical History / Comment(s): prostate Physical Examination Vital Signs Temp Pulse Resp BP Pulse Ox 07/27/21 14:24 99.7 F H 62 16 133/63 99 Intake and Output 07/27/21 07/27/21 07/27/21 06:59 14:59 22:59 Intake Total 50 Balance 50 Intake: IV 50 Other: Weight 77.7 kg Results Current Medications Generic Name Dose Route Start Last Admin Trade Name Freq PRN Reason Stop Dose Admin Fentanyl Citrate 50 mcg 07/27/21 07:38 Fentanyl (Pf) 50 Mcg/Ml 2 Ml Amp IV 07/27/21 20:00 Q3M PRN Pain Control Lactated Ringer's 1,000 mls @ 20 mls/hr 07/27/21 07:38 Lactated Ringers IV 08/26/21 07:39 .Q24H VIN Lidocaine HCl 0.1 ml 07/27/21 07:38 Lidocaine 1% (10mg/Ml) For Iv Start INTRADERMA 08/26/21 07:39 PER PROTOCOL PRN IV Start Intake and Output 07/27/21 07/27/21 07/27/21 06:59 14:59 22:59 Intake Total 50 Balance 50 Intake: IV 50 Other: Weight 77.7 kg Patient Weight 07/28/21 06:59 Weight 77.7 kg
[2021-07-27] MEDS ORDERED: LIDOCAINE 1% INJ 10MG/ML (20 ML MDV) SQ ONE (15:31)
[2021-07-27] MEDS ORDERED: IOPAMIDOL-370 100ML BTL INJ ONE ×3 (17:25)
[2021-07-27] MEDS ORDERED: HEPARIN SODIUM (1,000 UNIT/ML) 1,000 UNIT in SODIUM CHLORIDE 0.9% 1,000 ML IRRIGATION ONE (17:27)
[2021-07-27] MEDS ORDERED: LACTATED RINGERS 1,000 ML IV ONE (18:00)
[2021-07-27] MEDS ORDERED: ACETAMINOPHEN TAB 325 MG TAB PO PRN (19:04)
[2021-07-27] MEDS ORDERED: ACETAMINOPHEN IV (For NPO) 1,000 MG in EMPTY BAG 1 BAG IVPB ONE (19:04)
--- NOTE | 2021-07-27 19:12 | P.PRLE ---
RE: Pallavi Fofana Dear Jovita Pallavi underwent an A. fib ablation with cryoablation coronary veins, septal ablation in the left atrium and linear ablation in the left atrial roof Following that we could not induce any further atrial fibrillation She will continue ELIQUIS for anticoagulation stroke prevention and will follow with you and Dr. Darling as before Hopefully this results in a significant reduction in her atrial fibrillation Thank you for entrusting me with the care of the patient Warm regards Sincerely Pelon Diaz
--- NOTE | 2021-07-27 19:20 | P.EPPROC ---
- EP Procedure Note Electrophysiology Procedure Note: PROCEDURE A. fib ablation, PVI, linear ablation of the left atrial septum, linear ablation of the left atrial roof DIAGNOSIS Atrial fibrillation, symptomatic, refractory to therapy Paroxysmal RESULT No left atrial appendage mass seen on intracardiac echo Successful A. fib ablation/pulmonary vein isolation of all veins using cryo- ablation Complete entrance block in all 4 veins confirmed Linear ablation in the left atrial septum Linear ablation in the left atrial roof No evidence for phrenic nerve injury Esophageal deflection YES PROCEDURE DETAILS Patient was brought to the EP lab in a fasting state. Written informed consent was obtained prior to the procedure. Procedure performed under general anesthesia After initial muscle relaxant use, muscle relaxants were not given thereafter in order to assess phrenic nerve during procedure. Patient prepped and draped as per protocol Full cryo-set up with standard preparation of the cryoablation tools done. Femoral Venous access obtained on the right and left groins Venous and arterial Sheaths placed. Diagnostic catheters for the high right atrium, phrenic nerve stimulation and pacing, His bundle, RV and coronary sinus placed Intracardiac echo catheter placed. Long sheath placed in the right atrium Left and right transseptal catheterization performed under intracardiac echo guidance. Intravenous heparin with aCT above 300 Later, catheter positioning and balloon positioning in the left atrium, under intracardiac echo guidance Diagnostic EP study with Drug infusion Coronary sinus pacing and recording Baseline measurements Sinus cycle length 1019 ms, PA interval 123 ms, QRS 116 and QT 468 ms AH 101 ms and HV interval 45 ms Transseptal catheterization performed RA pressure 15/2/9 LA pressure 30/8/80 Transseptal catheterization performed with standard sheath. The cryoablation sheath was then placed with an over the wire exchange without any acute complications. All 4 pulmonary veins were isolated in the following sequence: Left superior followed by left inferior followed by right superior followed by right inferior The cryo-ablation balloon was placed at the os of each vein 1.5 mL of IV dye was injected to confirm an occluded vein Goal during cryoablation was to achieve complete occlusion of the pulmonary vein, achieve -30 degrees C at 30 seconds and achieve -40 degrees C at 60 seconds and a time to effect of less than 60-90 seconds, . If not the balloon was repositioned to obtain this result After completion of Cryoblation with durations from 180-240 seconds, entrance block was confirmed with the Attain circular catheter in a roving fashion around the antrum of the pulmonary veins Phrenic nerve pacing was performed from the SVC, right innominate vein area and diaphragm voltage was monitored. Diaphragmatic contractions were also monitored manually for strength of contraction. Parameter goals for each cryo freeze Complete occlusion of the appropriate vein -30 degrees C by 30 seconds -40 degrees C by 60 seconds Minimum between minus 40-55 degrees C Thaw time greater than 10 seconds Balloon visualized by intracardiac echo The esophagus was intubated. Esophageal Temperature monitoring with a CIRCA catheter formed. Esophageal deflection for hypothermia of the esophagus below 30 degrees C Left superior pulmonary vein Complete isolation, entrance block Left inferior pulmonary vein Complete isolation, entrance block Right superior pulmonary vein, during phrenic nerve pacing Complete isolation, entrance block Right inferior pulmonary vein, during phrenic nerve pacing Complete isolation, entrance block Linear ablation along the left atrial roof and upper posterior wall of the LA with a cryo balloon Later the In the mid roof was completed with RF ablation, linear ablation At the end of the procedure the Achieve catheter was once again used to check for entrance block Phrenic nerve stimulation was performed to confirm diaphragmatic stimulation the end of the procedure Cine fluoroscopy was performed at the very end of the procedure to confirm movement of both diaphragms with inspiration and expiration The cryo sheath was replaced. The RF sheath RF ablation cath was placed Electrograms are noted in the ostium of the right superior pulmonary vein despite the very well occluded right superior pulmonary vein Linear ablation was performed in the posterior septum from the right superior pulmonary vein down to the right inferior pulmonary vein Once this line was completed the posterior septum was completely isolated In addition the electrograms/PVP is in the ostium of the anterior right superior pulmonary vein for also eliminated A lot of ms and noted along the mid roof Linear ablation using RF was used to complete the roof line The left superior vein anteriorly close to the very large left atrial appendage seemed to have electrograms along the anterior wall RF lesions applied along the antrum, anteriorly of the left-sided pulmonary vein Once this was complete pacing was performed from the left atrial appendage and voltage mapping was once again performed to confirm up completely isolated left superior pulmonary vein At the end of the procedure the patient was extubated Heparin was reversed Venous sheaths were removed and hemostasis assured PROCEDURES PERFORMED Diagnostic EP study CS pacing and recording Left and right transseptal catheterization 3D mapping) Intracardiac echocardiography Pulmonary vein isolation with transseptal and comprehensive EPS, [id number] Left atrial roof line, +[id number] Linear ablation, left atrium, +[id number] Drug Infusion +[id number]
[2021-07-27] MEDS: METOPROLOL SUCCINATE (ER) 25 MG TAB.ER.24H PO SCH (20:16)
[2021-07-27] MEDS: APIXABAN 5 MG TAB PO SCH (20:17)
[2021-07-28] MEDS: METOPROLOL SUCCINATE (ER) 25 MG TAB.ER.24H PO SCH (08:25)
[2021-07-28] MEDS: APIXABAN 5 MG TAB PO SCH (08:26)
[2021-07-28 08:33] VITALS: BP 103/66; PULSE 78; RESP 18; TEMP 98
[2021-07-28] MEDS ORDERED: predniSONE 5 MG TAB PO SCH (09:00)
[2021-07-28] MEDS ORDERED: FAMOTIDINE 20 MG/2 ML VIAL IV SCH (09:00)
--- NOTE | 2021-07-28 11:36 | DS ---
DISCHARGE SUMMARY Pallavi Fofana is a 66-year-old female patient of Dr. Darling who has paroxysmal symptomatic atrial fibrillation. Yesterday, she underwent an A-fib ablation with pulmonary vein isolation, linear ablation of left atrial roof and in the septum. This morning, she has no chest discomfort. She does have a sore throat. She also has feeling gassy in the belly. No abdominal discomfort. No epigastric discomfort. No chest discomfort. She simply feels a little bloated. She did ambulate around in the room and went to the bathroom and there was no dizziness, lightheadedness. No palpitations. She feels her chest feels good. The rhythm is regular. Otherwise, she feels good. On examination, her vitals stable. Heart sounds S1, S2 normal. No murmurs or gallop. No rub. A 12 lead ECG shows nonspecific ST changes. Abdomen is soft, nontender. Lungs are clear to auscultation. No JVD. Her groin is healed well. There is no hematoma. Flow stasis was removed. IMPRESSION: 1. Paroxysmal atrial fibrillation, status post A-fib ablation. 2. Abdominal bloating, which she says is typical after she takes high-dose steroids . PLAN: Continue anticoagulation and go back to usual dose of steroids take and we will prescribe IV Pepcid today. Discharge home later on today if she is stable, ambulatory, and if her groins stay well-healed. She will follow up with Dr. Darling in a week. MMODL / IJN: [id number] /
== END 2021-07-28 11:59 | disposition home or self-care (01) ==
LOC: CATHEP 13:32 → 6NMEDSUR 18:35 → CATHEP 07-28 11:59
PROVIDERS: ATTEND Internal Medicine Clinical Cardiac Electrophysiology
DX: I48.0 Paroxysmal atrial fibrillation (principal); R00.1 Bradycardia, unspecified; D59.11 Warm autoimmune hemolytic anemia; Z20.822 Contact with and (suspected) exposure to COVID-19; K51.90 Ulcerative colitis, unspecified, without complications; Z87.19 Personal history of other diseases of the digestive system; Z98.890 Other specified postprocedural states; Z82.49 Family history of ischemic heart disease and other diseases of the circulatory system; Z80.49 Family history of malignant neoplasm of other genital organs; Z79.890 Hormone replacement therapy; Z79.52 Long term (current) use of systemic steroids; Z79.899 Other long term (current) drug therapy; Z88.5 Allergy status to narcotic agent; Z91.041 Radiographic dye allergy status; Z88.8 Allergy status to other drugs, medicaments and biological substances; Z88.9 Allergy status to unspecified drugs, medicaments and biological substances
CPT/HCPCS: 93623; 93662; 93613; 93656; 93657; 87635; C1759; C1894 ×2; C1769 ×4; C1760; C1730 ×2; C1893; C1733; C1766; C1732; J2250; J2720; J1644 ×3; J1100; J1940; J2710; J2405; J2001; J3010; J0131; J0330; J2704; J7512; Q9967

== ENCOUNTER → 2021-08-19 | Outpatient (CLI) | payer MEDICARE ==
--- NOTE | 2021-08-19 14:07 | US ---
EXAMINATION TYPE: US abdomen complete DATE OF EXAM: 08/19/2021 COMPARISON: NONE CLINICAL HISTORY: R31.9 Hematuria. EXAM MEASUREMENTS: Liver Length: 9.8 cm Gallbladder Wall: 0.2 cm CBD: 0.2 cm Spleen: 11.7 cm Right Kidney: 10.1 x 4.2 x 4.4 cm Left Kidney: 10.4 x 4.8 x 5.1 cm Pancreas: Mostly obscured by bowel gas, portions visualized wnl Liver: wnl Gallbladder: echogenic shadowing foci in fundus Evidence for sonographic Peterson's sign: no CBD: wnl Spleen: wnl Right Kidney: No hydronephrosis or masses seen Left Kidney: cyst measuring 3.5 x 3.2 x 3.2 Upper IVC: wnl Abd Aorta: wnl IMPRESSION: 1. Left renal cyst. 2. Cholelithiasis
== END | disposition home or self-care (01) ==
LOC: RADUSWWP 09:45
PROVIDERS: ATTEND Family Medicine
DX: N28.1 Cyst of kidney, acquired (principal); K80.20 Calculus of gallbladder without cholecystitis without obstruction
CPT/HCPCS: 76700

== ENCOUNTER → 2022-04-16 | Outpatient (CLI) | payer MEDICARE | END | disposition home or self-care (01) | LOC: RADMAMWWP 13:08 | PROVIDERS: ATTEND Obstetrics & Gynecology | DX: Z12.31 Encounter for screening mammogram for malignant neoplasm of breast (principal); Z80.3 Family history of malignant neoplasm of breast | CPT/HCPCS: 77063; 77067 ==

== ENCOUNTER → 2022-04-28 | Outpatient (CLI) | payer MEDICARE ==
--- NOTE | 2022-04-28 11:06 | MM ---
Reason for Exam: Additional evaluation requested from abnormal screening. Last screening mammogram was performed less than 1 month ago. Patient History: Menarche at age 10. Patient has no children. Postmenopausal. Patient used Estrogen for 10 years. Hormonal Contraceptives for 4 years from age 16 until age 20. Estrogen and Progesterone, starting at age 67. 06/09/2011, Benign Core Biopsy on the left side. Paternal aunt had breast cancer, age 65. Maternal aunt had breast cancer, age 67. Risk Values: Pallavi 5 year model risk: 2.3%. NCI Lifetime model risk: 6.9%. Prior Study Comparison: 05/13/2011 Bilateral Screening Mammogram, [facility]. 01/02/2019 Bilateral Screening Mammogram, [facility]. 01/03/2020 Bilateral Diagnostic Mammogram, [facility]. 04/16/2022 Bilateral MG 3D screening mammo w/cad, [facility]. Tissue Density: Right: The breast tissue is heterogeneously dense. This may lower the sensitivity of mammography. Findings: Analyzed By CAD. There are 3 grouped benign-appearing dystrophic calcifications in the right breast show slight increase in number over last several mammograms. No new suspicious group of microcalcifications in the right breast. Overall Assessment: Benign, BI-RAD 2 Management: Screening Mammogram of both breasts in 1 year. Back on schedule. Results were given to the patient verbally at the time of exam. Electronically signed and approved by: Jamie Allison M.D.
== END | disposition home or self-care (01) ==
LOC: RADMAMWWP 10:22
PROVIDERS: ATTEND Obstetrics & Gynecology
DX: R92.8 Other abnormal and inconclusive findings on diagnostic imaging of breast (principal)
CPT/HCPCS: 77065; G0279; 77061

== ENCOUNTER → 2022-06-29 | Outpatient (CLI) | payer MEDICARE ==
--- NOTE | 2022-06-29 09:48 | MR ---
EXAMINATION TYPE: MR MRCP DATE OF EXAM: 06/29/2022 COMPARISON: MRCP October 10, 2020 HISTORY: PRIMARY SCLEROSING CHOLANGITIS Standard multiplanar, multisequence MRI departmental protocol Multiplanar, multisequence images of the abdomen were acquired without contrast. Thin and thick slice MRCP imaging performed on the MRI scanner. FINDINGS: Liver/gallbladder/pancreas/biliary system: Gallbladder redemonstrates distended margins with new depe ndent small intraluminal gallstones. No surrounding fluid or abnormal wall thickening. Liver remains normal in size without signal dropout. Occasional tiny subcentimeter thin-walled cysts throughout the liver is seen. Pancreas is normal in size without concerning solid or cystic mass. MRCP images show normal-appearing pancreatic duct. There is redemonstration of 2 areas of narrowing in the common bile duct just past the confluence image 72 series 801 being the most severe with more distal narrowing a nd then focal prominence or slight dilatation near the ampulla up to 5 mm. Narrowing up to 1.7 mm not ed on current study versus 2.6 on prior. Slightly prominent cystic duct redemonstrated. There is mild beading and narrowing in the left hepatic lobe similar to prior study. Poor visualization of bile du cts in the right hepatic lobe due to nondistention similar to prior. Other: Lung bases are grossly clear. Spleen and both adrenal glands remain within normal limits. Part ially exophytic 3.8 cm thin-walled cyst posteriorly midpole of the left kidney redemonstrated. Cortic al thinning in both kidneys. No hydronephrosis. No small or large bowel dilatation. No intra-abdomina l ascites. There is osseous hemangioma involving the left T11 vertebra redemonstrated. IMPRESSION: New intraluminal gallstones in gallbladder without MRI evidence for acute cholecystitis. Areas of alternating narrowing and dilatation in the biliary system redemonstrated correlate with his tory of PSC. Most prominent narrowing just past confluence of cystic and common and hepatic duct is e abdullahi more prominent on current study versus prior MRI.
== END | disposition home or self-care (01) ==
LOC: RADMRIMAIN 08:10
PROVIDERS: ATTEND Internal Medicine Gastroenterology
DX: K83.01 Primary sclerosing cholangitis (principal)
CPT/HCPCS: 74181

== ENCOUNTER → 2023-06-28 | Outpatient (CLI) | payer MEDICARE ==
--- NOTE | 2023-06-29 16:40 | MM ---
Reason for Exam: Screening (asymptomatic). Last mammogram was performed 1 year(s) and 3 month(s) ago. Patient History: Menarche at age 10. Patient has no children. Postmenopausal. Patient used Estrogen for 10 years. Hormonal Contraceptives for 4 years from age 16 until age 20. Estrogen and Progesterone, starting at age 67. 06/09/2011, Benign Core Biopsy on the left side. Paternal aunt had breast cancer, age 65. Maternal aunt had breast cancer, age 67. Risk Values: Pallavi 5 year model risk: 2.3%. NCI Lifetime model risk: 6.6%. Prior Study Comparison: 01/03/2020 Bilateral Diagnostic Mammogram, [facility]. 04/16/2022 Bilateral MG 3D screening mammo w/cad, [facility]. 04/28/2022 Right MG 3D work up w/cad RT, [facility]. Tissue Density: The breast tissue is heterogeneously dense. This may lower the sensitivity of mammography. Findings: Analyzed By CAD. Pattern appears stable. Multiple benign-appearing calcifications are present bilaterally. A core marker is within the left breast. No suspicious groups of microcalcifications, spiculated or lobular masses, architectural distortion or other secondary signs of malignancy are mammographically apparent. Overall Assessment: Benign, BI-RAD 2 Management: Screening Mammogram of both breasts in 1 year. A negative mammogram report should not preclude additional follow up of suspicious palpable abnormalities. Patient should continue monthly self breast exam. A clinical breast exam by your physician is recommended on an annual basis and results should be correlated with mammographic findings. Electronically signed and approved by: Neel Varela D.O. Radiologis
== END | disposition home or self-care (01) ==
LOC: RADMAMWWP 14:24
PROVIDERS: ATTEND Family Medicine
DX: Z12.31 Encounter for screening mammogram for malignant neoplasm of breast (principal); Z78.0 Asymptomatic menopausal state; Z80.3 Family history of malignant neoplasm of breast
CPT/HCPCS: 77063; 77067

== ENCOUNTER 2023-09-21 06:15 | Day surgery (SDC) | payer MEDICARE ==
[2023-09-19 11:59] VITALS: BMI 30.6
[2023-09-21] MEDS ORDERED: LACTATED RINGERS 1,000 ML IV SCH (06:25)
[2023-09-21] MEDS ORDERED: LIDOCAINE 1% (10MG/ML) FOR IV START INTRADERMA PRN (06:25)
[2023-09-21] MEDS ORDERED: LACTATED RINGERS 1,000 ML IV ONE (06:40)
[2023-09-21 06:58] LABS: Glucose,Whole Blood 85 mg/dL (70-110)
[2023-09-21 07:04] VITALS: TEMP 97.8
[2023-09-21] MEDS ORDERED: PROPOFOL 10 MG/ML 20 ML VIAL IV ONE (07:31)
--- NOTE | 2023-09-21 07:55 | P.PCN ---
Date of Procedure: 09/21/23 Procedure(s) Performed: BRIEF HISTORY: Patient is a 68-year-old pleasant 8 female scheduled for an elective colonoscopy as a part of surveillance of long-standing history of ulcerative colitis diagnosed in 1999. She is in clinical remission. PROCEDURE PERFORMED: Colonoscopy with random biopsy. PREOPERATIVE DIAGNOSIS: Long-standing history of ulcerative colitis. IV sedation per Anesthesia. PROCEDURE: After informed consent was obtained, the patient, was brought into the endoscopy unit. IV sedation was administered by Anesthesia under continuous monitoring. Digital rectal examination was normal. Initially the Olympus CF-160 flexible video colonoscope was then inserted in the rectum, gradually advanced into the cecum without any difficulty. Careful examination was performed as the scope was gradually being withdrawn. Ileocecal valve and the appendiceal orifice were visualized and appeared normal. Prep was excellent. Mucosa of the cecum, ascending colon, transverse colon, descending colon, sigmoid colon, and rectum appeared normal. The proximal rectum there was a 2 mm polyp removed by cold biopsy. Random biopsies were done from the cecum to rectum at every 10 cm into well to rule out dysplasia. Retroflexion was performed in the rectum and no lesions were seen. The patient tolerated the procedure well. IMPRESSION: 2 mm proximal rectal polyp status post cold biopsy No evidence of colitis RECOMMENDATIONS: Findings of this examination were discussed with the patient as her family. She was advised to follow with the biopsy doesn't there is no evidence of dysplasia have a repeat colonoscopy in one year because of history of PSC.
[2023-09-21 08:36] VITALS: BP 111/71; PULSE 66; RESP 14
== END 2023-09-21 08:36 | disposition home or self-care (01) ==
LOC: ORWHC2ENDO 06:15
PROVIDERS: ATTEND Internal Medicine Gastroenterology
DX: K51.90 Ulcerative colitis, unspecified, without complications (principal); I48.91 Unspecified atrial fibrillation; E07.9 Disorder of thyroid, unspecified; Z98.890 Other specified postprocedural states; Z79.82 Long term (current) use of aspirin; Z79.899 Other long term (current) drug therapy
CPT/HCPCS: 88305; 45380; J2704

== ENCOUNTER → 2023-12-14 | Outpatient (CLI) | payer MEDICARE ==
--- NOTE | 2023-12-14 09:17 | MR ---
EXAMINATION TYPE: MR MRCP DATE OF EXAM: 12/14/2023 7:04 AM CLINICAL INDICATION:Female, 68 years old with history of K83.01 PRIMARY SCLEROSING CHOLANGITIS; PHH, Primary sclerosing cholangitis, Yearly f/u COMPARISON: MRI 12/24/2022. TECHNIQUE: Multi planar, T2-weighted imaging with and without fat saturation and chemical shift imag ing was performed of the abdomen. Then, heavily T2 weighted imaging (half-Fourier acquisition single- shot turbo spin-echo) was utilized in order to study the biliary system. Maximum intensity projectio n images were reconstructed from the original data of the biliary tree. 3D images were created on a [employer] work station. No Gadolinium given. FINDINGS: MRCP: The intrahepatic ducts have somewhat tortuous course with areas of dilation and focal strictur ing most proximal left hepatic lobe. The common bile duct at the level of the pancreatic head measures 5 mm in size. The common hepatic du ct measures 6 mm in size. Stable morphology of the extrahepatic biliary system. There is to filling defects within the distal c ommon bile duct series 401 image 14 measuring approximately 2 mm each. Abdomen: Liver: Signal dropout on in phase imaging chemical shift imaging. Gallbladder and Bile ducts: Multiple layering gallstones are seen in the gallbladder lumen. No eviden ce for wall thickening. Pancreas: The pancreatic duct is normal. Tortuous main duct best appreciated on axial imaging within the pancreatic head and neck region. There is cystic lesion series 801 image 18 within the pancreatic head anteriorly measuring 5 mm series 801 image 18. Spleen: Signal dropout on in phase imaging chemical shift imaging. Adrenal glands: Unremarkable. Kidneys: Left renal cyst measuring up to 44 mm precise 34 mm with thin septations, similar to prior's . Stomach and Bowel: Unremarkable as visualized. Peritoneum: No evidence of pneumoperitoneum, free fluid, or adenopathy. Vasculature: No aortic aneurysm. Abdominal wall: Unremarkable. Musculoskeletal: The osseous structures appear intact. IMPRESSION: 1. Choledocholithiasis with 2 filling defects within the common bile duct. 2. Predominant left hepatic lobe areas of beaded appearance of the intrahepatic biliary system consi stent with primary sclerosing cholangitis history. 3. Cholelithiasis. 4. 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 5. Signal dropout of the liver and spleen on in phase chemical shift imaging consistent with hemosid augustine deposition. 6. Minimally complex left renal cyst may be mildly increased in size from prior.
== END | disposition home or self-care (01) ==
LOC: RADMRIMAIN 05:58
PROVIDERS: ATTEND Internal Medicine Gastroenterology
DX: K80.70 Calculus of gallbladder and bile duct without cholecystitis without obstruction (principal); K86.2 Cyst of pancreas; N28.1 Cyst of kidney, acquired
CPT/HCPCS: 74181

== ENCOUNTER → 2024-08-29 | Outpatient (CLI) | payer MEDICARE ==
--- NOTE | 2024-09-06 11:55 | MM ---
Reason for Exam: Screening (asymptomatic). Last mammogram was performed 1 year(s) and 2 month(s) ago. Patient History: Menarche at age 10. Patient has no children. Postmenopausal. Patient used Estrogen for 10 years. Hormonal Contraceptives for 4 years from age 16 until age 20. Estrogen and Progesterone, starting at age 67. 06/09/2011, Benign Core Biopsy on the left side. Paternal aunt had breast cancer, age 65. Maternal aunt had breast cancer, age 67. Risk Values: Pallavi 5 year model risk: 2.3%. NCI Lifetime model risk: 6.3%. Prior Study Comparison: 06/16/2017 Left Diagnostic Mammogram, [facility]. 12/29/2017 Bilateral Screening Mammogram, [facility]. 01/02/2019 Bilateral Screening Mammogram, [facility]. 01/03/2020 Bilateral Diagnostic Mammogram, [facility]. 04/16/2022 Bilateral MG 3D screening mammo w/cad, [facility]. 04/28/2022 Right MG 3D work up w/cad RT, [facility]. 06/28/2023 Bilateral MG 3D screening mammo w/cad, [facility]. Tissue Density: The breasts are heterogeneously dense, which may obscure small masses. Findings: Analyzed By CAD. Left breast biopsy clip. Right breast: There is no suspicious group of microcalcifications or new suspicious mass. Benign-appearing calcifications right breast. Left breast: There is no suspicious group of microcalcifications or new suspicious mass. Benign-appearing calcifications left breast. Overall Assessment: Benign, BI-RAD 2 Management: Screening Mammogram of both breasts in [address] [facility] will attempt to contact patient to return for supplemental views and ultrasound if indicated. Patient should continue monthly self-breast exams. A clinical breast exam by your physician is recommended on an annual basis. This exam should not preclude additional follow-up of suspicious palpable abnormalities. Note on Pallavi scores and lifetime risk: 1. A Pallavi score greater than 3% is considered moderate risk. If this is the case, consider specialist referral to assess eligibility for a risk reducing agent. 2. If overall lifetime risk for the development of breast cancer is 20% or higher, the patient may qualify for future screening with alternating mammogram and breast MRI. [facility], , 09/06/2024 11:48 AM. Electronically signed and approved by: Roldan Veloz DO
== END | disposition home or self-care (01) ==
LOC: RADMAMWWP 12:39
PROVIDERS: ATTEND Family Medicine
DX: Z12.31 Encounter for screening mammogram for malignant neoplasm of breast (principal); R92.333 Mammographic heterogeneous density, bilateral breasts; Z78.0 Asymptomatic menopausal state; Z80.3 Family history of malignant neoplasm of breast
CPT/HCPCS: 77063; 77067